=== PATIENT | male | born 1975 | race Caucasian/White ===

== ENCOUNTER 2024-03-15 15:45 | Outpatient (AMB) | payer OTHER, SELFPAY ==
--- NOTE | 2024-03-15 15:52 | MHC.PC.OV ---
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 Will order labs. Due for PSA, will order. Denies dribbling with urination, does have a weak stream (intermittent), and denies nocturia. Due for colon screen, will refer to GI. 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 1. Little interest or pleasure in doing things: not at all 2. Feeling down, depressed, or hopeless: not at all 3. Trouble falling or staying asleep, or sleeping too much: nearly every day 4. Feeling tired or having little energy: nearly every day 5. Poor appetite or overeating: nearly every day 6. Feeling bad about yourself - or that you are a failure or have let yourself or your family down: not at all 7. Trouble concentrating on things, such as reading the newspaper or watching television: not at all 8. Moving or speaking so slowly that other people could have noticed. Or the opposite - being so fidgety or restless that you have been moving around a lot more than usual: not at all 9. Thoughts that you would be better off or of hurting yourself in some way: not at all Total score: 9 Depression Screening Interpretation: Negative Depression Screening Done: Yes 03203 - PHQ-9 Billing: Yes Source: Developed by Drs. Ronak Hu, Angeles Loera, Jarrod Rogers and colleagues, with an educational ben from [employer]. Thrive Questionnaire Date Thrive assessed: 03/15/24 I am a: Patient What is your living situation today?: I have a steady place to live Within the past 12 months, did the food you bought not last and you didn't have the money to get more?: Never true Within the past 12 months, did you worry whether your food would run out before you got money to buy more?: Never true Do you have trouble paying for medicines?: No Do you have trouble getting transportation to medical appointments?: No Do you have trouble paying your heating and electricity bill?: No Do you have trouble taking care of your child, family member or friend?: No Do you have trouble with day-to-day activities such as bathing, preparing meals, shopping, managing finances, etc.?: No Are you currently unemployed and looking for a job?: No Are you interested in more education?: No Please select the resources that you would like help with: None Currently or been in a relationship where the following occur: No concerns reported THRIVE Score: 0 AUDIT C Alcohol Use Questionnaire (AUDIT-C) 1. How often do you have a drink containing alcohol?: 2-4 times a month 2. How many drinks containing alcohol do you have on a typical day when you are drinking?: 1 or 2 3. How often do you have six or more drinks on one occasion?: Never Total Score: 2 Score Reviewed/Action Taken: Yes JANET-7 AMB Questionnaire JANET-7 Date JANET - 7 assessed: 03/15/24 Feeling nervous, anxious, or on edge: 0 = Not at all Not being able to stop or control worryin = Not at all Worrying too much about different things: 0 = Not at all Trouble relaxin = Not at all Being so restless that it is hard to sit still: 0 = Not at all Becoming easily annoyed or irritable: 0 = Not at all Feeling afraid as if something awful might happen: 0 = Not at all Total JANET-7 score (0-4 normal; 5-9 mild; 10-14 moderate; 15-21 severe): 0 Source: Developed by Drs. Ronak Hu, Angeles Loera, Jarrod Rogers and colleagues, with an educational ben from [employer]. JANET-7 Assessment Billing JANET-7 Assessment Tool: JANET-7 Assessment 88100 Review of Systems Const Denies chills and Denies fever(s) Eyes Denies blurry vision ENT Denies vertigo, Denies dizziness and Denies sore throat Card Denies chest pain at rest, Denies chest pain with activity, Denies diaphoresis, Denies dyspnea and Denies dyspnea on exertion Resp Denies cough, Denies dyspnea, Denies dyspnea on exertion and Denies wheezing GI Denies abdominal pain, Denies melena, Denies hematochezia, Denies constipation, Denies diarrhea and Denies loose stools Denies hematuria Musc Denies numbness and Denies tingling Skin/Breast Denies lesions Neuro Denies vertigo, Denies dizziness, Denies numbness and Denies tingling Psych Denies anxiety, Denies depression, Denies homicidal ideation, Denies suicidal ideation and Denies other (substance abuse) Aller/Immun Denies wheezing Physical exam (Primary Care) Vital Signs: Last Vital Signs Pulse 60 03/15/24 15:55 BP 120/80 03/15/24 15:55 Pulse Ox 96 03/15/24 15:55 BMI result Body Mass Index 32.8 Tobacco/Smoking Status: Tobacco use Status Tobacco use date assessed 03/15/24 03/15/24 15:53 Patient Tobacco Use Status Never used Tobacco 03/15/24 15:58 e-Cigarette/Vaping Use Never Used 03/15/24 15:58 PHQ-9: PHQ-9 Score PHQ-9: Total score 9 03/15/24 16:08 Depression Screening Interpretation: Negative Thrive Assessment: Date of Thrive Assessment Date Thrive assessed 03/15/24 03/15/24 15:53 Currently or been in a relationship where the following occur: No concerns reported Const General: cooperative Nutritional Appearance: well nourished Orientation/consciousness: patient oriented x3 HENMT Head: Yes normal to inspection, Yes normocephalic and Yes atraumatic Ears: TM's normal bilaterally Eyes General: appearance normal, both eyes and all related structures Alignment and Position: alignment normal and position normal Neck Neck: Yes normal visual inspection, Yes no lymphadenopathy and Yes supple Resp Effort & Inspection: normal respiratory effort Auscultation: clear to auscultation bilaterally Cardio Rate: regular rate Rhythm: regular rhythm Heart sounds: S1 normal heart sound present, S2 normal heart sound present and no murmurs GI Palpation (GI): Soft to palpation and nontender Auscultation: normal bowel sounds Other: refused EUGENIA Male General Exam: Yes normal external exam Penis: normal penis Scrotum: scrotum normal, testes descended bilaterally and no inguinal hernias Testes: no testicular mass Skin Rashes: no rashes Neuro General: patient oriented x3, moves all extremities, no focal motor deficits and deep tendon reflexes 2+ bilaterally Romberg Test: Negative Psych Appearance: grossly normal Mental Status: mental status grossly normal Speech and movement: Normal speech and movement present Affect: normal affect Attitude: cooperative Thought process: Normal thought process present Thought content: Normal thought content present Insight: Good insight present (Psych) Judgement: Good judgement present (Psych) Assessment and Plan Assessment & Plan (1) Physical exam: Code(s): Z00.00 - Encounter for general adult medical examination without abnormal findings Plan: Labs ordered (2) Screening for prostate cancer: Code(s): Z12.5 - Encounter for screening for malignant neoplasm of prostate Plan: PSA ordered (3) Screening for colon cancer: Code(s): Z12.11 - Encounter for screening for malignant neoplasm of colon Plan: Referred to GI Plan The patient agreed to the use of a medical economics consultant for this encounter. Scribed for JENNIFER Kaplan by negro Lane scribe, on 03/15/2024 at 16:15 EST. Orders: Orders TSH reflex Free T4 Today Z00.00 - Encounter for general adult medical examination without abnormal findings UA CC w/rflx Micro + Cult Today Z00.00 - Encounter for general adult medical examination without abnormal findings Prostate Specific Antigen Scr Today Z12.5 - Encounter for screening for malignant neoplasm of prostate Complete Blood Count Auto Diff Today Z00.00 - Encounter for general adult medical examination without abnormal findings Comprehensive [place]. Panel Fast Today Z00.00 - Encounter for general adult medical examination without abnormal findings Lipid Panel Today Z00.00 - Encounter for general adult medical examination without abnormal findings Referrals Gastroenterology Referral Z12.11 - Encounter for screening for malignant neoplasm of colon Coding Level of Care Code New Pt Prev Care 40-64y(25012) Diagnoses Physical exam Z00.00 Screening for prostate cancer Z12.5 Screening for colon cancer Z12.11 Additional Codes JANET-7 Assessment Billing - JANET-7 Assessment Tool: JANET-7 Assessment [id number] ([id number])
[2024-03-15 15:55] VITALS: BP 120/80; PULSE 60; O2SAT 96; BMI 32.8
== END 2024-03-15 16:50 | disposition home or self-care (01) ==
PROVIDERS: PCP Nurse Practitioner Family; Visit Provider Nurse Practitioner Family
DX: Z00.00 Encounter for general adult medical examination without abnormal findings (principal); Z12.5 Encounter for screening for malignant neoplasm of prostate; Z12.11 Encounter for screening for malignant neoplasm of colon
CPT/HCPCS: 99386

== ENCOUNTER 2024-09-22 06:36 | Outpatient (REF) | payer OTHER, SELFPAY ==
[2024-09-22 10:14] LABS: MANUAL DIFF FLAG NO
[2024-09-22 10:24] LABS: Basophils Percent Auto 0.3 % (0-2); Eosinophils Absolute Auto 0.3 X10*3/uL (0.0-0.4); Eosinophils Percent Auto 4.7 % (0-4); Hematocrit 43.6 % (42.0-52.0); Hemoglobin 14.8 g/dl (14.0-18.0); Imm Gran Abs Auto 0.01 X10*3/uL (0.00-0.03); Imm Gran Pct Auto 0.2 % (0.0-0.4); Lymphocytes Absolute Auto 2.3 X10*3/uL (1.2-4.9); Lymphocytes Percent Auto 36.7 % (20-40); Mean Corpuscular HGB Conc 33.9 g/dl (31.0-36.0); Mean Corpuscular Hemoglobin 30.7 pg (27.0-33.0); Mean Corpuscular Volume 90.5 fL (80.0-98.0); Mean Platelet Volume 10.5 fL (9.4-12.4); Monocytes Absolute Auto 0.5 X10*3/uL (0.1-1.2); Monocytes Percent Auto 8.1 % (2-11); Neutrophils Absolute Auto 3.2 x10*3/uL (2.0-8.3); Platelet Count 253 X10*3/uL (160-400); Red Blood Count 4.82 X10*6/uL (4.60-5.80); Red Cell Distribution Width 11.9 % (11.0-16.0); White Blood Count 6.3 X10*3/uL (4.8-10.8)
[2024-09-22 10:44] LABS: Alanine Aminotransferase 41 U/L (0-40); Albumin Level 4.1 g/dL (3.5-5.0); Alkaline Phosphatase 121 U/L (39-117); Anion Gap 10 (12-20); Aspartate Amino Transferase 30 U/L (5-37); Bilirubin Total 0.4 mg/dL (0.0-1.0); Blood Urea Nitrogen 16 mg/dL (9-16); Calcium 9.1 mg/dL (8.4-10.2); Carbon Dioxide 27 mmol/L (22-29); Chloride 107 mmol/L (96-108); Cholesterol 181 mg/dL (<200); Estimated Glomerular Filt Rate > 60; Glucose Fasting 101 mg/dL (60-99); HDL Cholesterol 40 mg/dL (>40); LDL Cholesterol Calculated 126 mg/dL (<100); Sodium 140 mmol/L (135-145); Total Protein 7.5 g/dL (6.5-8.0); Triglycerides 79 mg/dL (<150)
[2024-09-22 10:49] LABS: Prostate Specific Antigen Scr 0.65 ng/mL (<0.05-4.0)
[2024-09-22 11:01] LABS: TSH reflex Free T4 1.65 uIU/mL (0.32-4.0)
[2024-09-22 11:03] LABS: Appearance Urine Turbid; Color Urine Dark Yellow; Glucose Urine UA Negative (Negative); Leukocyte Esterase Urine Negative (Negative); Nitrite Urine Negative (Negative); PH 5.5 (5.0-9.0); Specific Gravity - Urine >= 1.030 (1.005-1.025); Urine Blood Negative (Negative); Urine Ketones Trace mg/dL (Negative); Urine Protein Negative (Neg-Trace)
== END 2024-09-22 06:37 | disposition home or self-care (01) ==
LOC: HO.HMGCLDS 06:36
PROVIDERS: PCP Nurse Practitioner Family; Visit Provider Nurse Practitioner Family
DX: Z00.00 Encounter for general adult medical examination without abnormal findings (principal); Z12.5 Encounter for screening for malignant neoplasm of prostate; Z13.6 Encounter for screening for cardiovascular disorders
CPT/HCPCS: 36415; 80053; 80061; 81003; 84153; 84443; 85025

== ENCOUNTER → 2024-10-18 15:20 | Outpatient (BNVA) | payer OTHER, SELFPAY | PROVIDERS: PCP Nurse Practitioner Family; Visit Provider Surgery ==

== ENCOUNTER → 2024-10-18 15:20 | Outpatient (AMB) | payer OTHER, SELFPAY ==
--- NOTE | 2024-10-18 15:23 | A.OFFVIS_ITS ---
Vital Signs 10/18/24 15:34 Height 5 ft 11.75 in Weight 239 lb BMI 32.6 BP 133/88 Blood Pressure Location Rt brachial Position Sitting Pulse 77 Intake Visit Reasons: colonoscopy screening Intake Note: Patient scheduled for Colonoscopy screening. Reports stool sample test about 4yrs ago. Patient c/o: no concerns. Reports long periods of sitting while at work. Takes about 45 minutes to have complete bowel movement. Patient adopted unknown family hx. 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 He denies any significant GI complaints. He has never had any colonoscopy in the past. He does state that about 10 years ago, he had noticed some small amounts of blood on wiping. He has not seen this anymore. 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 Cognitive needs: No Hearing needs: No Vision needs: No Review of Systems Const Denies chills and Denies fever(s) Card Denies chest pain, Denies dyspnea and Denies dyspnea on exertion Resp Denies cough, Denies dyspnea and Denies dyspnea on exertion GI Denies hematochezia and Denies change in bowel habits Denies hematuria and Denies difficulty urinating Musc Denies back pain and Denies limited range of motion Neuro Denies focal weakness and Denies convulsions Psych Denies depression and Denies mood swings Physical Exam Vital Signs: Last Vital Signs Pulse 77 10/18/24 15:34 BP 133/88 10/18/24 15:34 BMI result Body Mass Index 32.6 Const General: comfortable and no acute distress Orientation/consciousness: patient oriented x3 Neck Neck: Yes no lymphadenopathy Resp Auscultation: clear to auscultation bilaterally Cardio Rhythm: regular rhythm GI Palpation (GI): Soft to palpation, nontender and no guarding Neuro General: patient oriented x3 Assessment & Plan Assessment & Plan (1) Screening for colon cancer: Code(s): Z12.11 - Encounter for screening for malignant neoplasm of colon Category: Medical Plan: I explained to him the technique of colonoscopy for screening. I reviewed the risks including but not limited to bleeding and perforation, as well as the benefits and alternatives. He says he understands and wants to proceed Coding Level of Care Code New Pt Level 3 (53988) Diagnoses Screening for colon cancer Z12.11
[2024-10-18 15:34] VITALS: BP 133/88; PULSE 77; BMI 32.6
== END ==
LOC: HO.HGS 15:21
PROVIDERS: PCP Nurse Practitioner Family; Visit Provider Surgery
DX: Z12.11 Encounter for screening for malignant neoplasm of colon (principal)
CPT/HCPCS: 99203

== ENCOUNTER 2024-10-26 14:56 | Outpatient (REF) | payer OTHER, SELFPAY ==
--- NOTE | ~2024-10-26 | US_ITS ---
CLINICAL HISTORY: R74.8 - Abnormal levels of other serum enzymes --- Additional Notes or Special Inst ructions: Elevated liver enzymes US abdomen complete with color Doppler Comparison: None Findings: The visualized pancreas, aorta, and inferior vena cava are unremarkable. Liver normal size and echotexture. Right lobe 16.6 cm length. No focal hepatic masses. Common duct 3.1 mm diameter. Physiologic distention of the gallbladder. Layering gallstones.5 mm gallbladder polyp. No gallbladder wall thickening. No pericholecystic fluid. No sonographic Toussaint sign. Main portal vein antegrade. Right kidney normal size, 10.2 cm in length. Normal cortical width and echotexture. No solid or cystic renal masses. No nephrolithiasis or hydronephrosis. Left kidney normal, 11.4 cm in length. Normal cortical width and echotexture. No solid or cystic renal masses. No nephrolithiasis or hydronephrosis. Spleen measures 12.9 cm. No splenic masses. No ascites. No lymphadenopathy. Impression: 1. Cholelithiasis. 5 mm gallbladder polyp. 2. Mild splenomegaly. This document has been electronically signed by: Loc Gaffney MD on 10/27/2024 12:53:56
== END 2024-10-26 14:57 | disposition home or self-care (01) ==
LOC: HO.HMGCX 14:56
PROVIDERS: PCP Nurse Practitioner Family; Visit Provider Nurse Practitioner Family
DX: R74.8 Abnormal levels of other serum enzymes (principal)
CPT/HCPCS: 76700

== ENCOUNTER → 2024-10-26 14:58 | Outpatient (BNV) | payer OTHER, SELFPAY | PROVIDERS: PCP Nurse Practitioner Family; Visit Provider Radiology Diagnostic Radiology | DX: R74.8 Abnormal levels of other serum enzymes (principal) | CPT/HCPCS: 76700 ==

== ENCOUNTER 2024-12-01 07:14 | Day surgery (SDC) | payer OTHER, SELFPAY ==
[2024-11-29 10:56] VITALS: BMI 32.6
[2024-12-01 07:21] VITALS: BMI 32.4
[2024-12-01 07:34] VITALS: BP 120/75; PULSE 79; RESP 16; TEMP 36.3; O2SAT 94
[2024-12-01] MEDS: Lactated Ringers 1,000 ML 100 ML IVCONT (07:42)
--- NOTE | 2024-12-01 08:15 | P.CONAN_ITS ---
Documented by User: Leelee Mckeon NP 11/30/24 09:38 HPI - Anesthesia Eval Consult details Narrative: 49yo M for Colonoscopy, possible polypectomy [facility] Active Problems Active Problems: All Active Problems Gallbladder polyp (Acute) Splenomegaly (Acute) Elevated alkaline phosphatase level (Acute) Elevated liver enzymes (Acute) Screening for colon cancer (Acute) Screening for prostate cancer (Acute) Physical exam (Acute) Surgical History Surgical History Hx of LASIK Social History Social History Housing: House Alcohol intake: current Alcohol intake frequency: holidays/special occasions only Alcohol type: beer and hard liquor Patient Tobacco Use Status: Never used Tobacco e-Cigarette/Vaping Use: Never Used Use of substances other than those prescribed or required for medical reasons: Yes Advance Directives: No Advance Directives Information Provided: Yes Poor oral hygiene: No service: Yes ([employer]- 4 yrs..[employer] 4 yrs ) Current occupational status: employed 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 Cognitive needs: No Hearing needs: No Vision needs: No Meds Allergies Allergy/AdvReac Type Severity Reaction Status Date / Time No Known Allergies Allergy Verified 10/18/24 15:29 Exam Height,Weight and Vital Signs: Height 5 ft 11.75 in Weight 108.409 kg Pertinent Lab Results Pertinent Lab Results: Laboratory Tests 09/22/24 07:04 WBC 6.3 Hgb 14.8 Hct 43.6 Plt Count 253 Sodium 140 Potassium 4.0 Chloride 107 Carbon Dioxide 27 BUN 16 Creatinine 0.93 Assessment and Plan Assessment Anesthesia Assessment: Chart Reviewed Documented by User: Norma Jason DO 12/01/24 08:16 [facility] Family History Family history of problems with anesthesia: No Surgical History Surgical History Hx of LASIK History of Problems with Anesthesia: No Social History Social History Housing: House Alcohol intake: current Alcohol intake frequency: holidays/special occasions only Alcohol type: beer and hard liquor Patient Tobacco Use Status: Never used Tobacco e-Cigarette/Vaping Use: Never Used Use of substances other than those prescribed or required for medical reasons: Yes Advance Directives: No Advance Directives Information Provided: Yes Poor oral hygiene: No service: Yes ([employer]- 4 yrs..[employer] 4 yrs ) Current occupational status: employed 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 Cognitive needs: No Hearing needs: No Vision needs: No Meds Allergies Allergy/AdvReac Type Severity Reaction Status Date / Time No Known Allergies Allergy Verified 10/18/24 15:29 Exam Exam Date and Time: 12/01/24 0815 Height,Weight and Vital Signs: Height 5 ft 11.75 in Weight 108.409 kg Vital Signs Temperature 97.3 F 12/01/24 07:34 Pulse Rate 79 12/01/24 07:34 Respiratory Rate 16 12/01/24 07:34 Blood Pressure 120/75 12/01/24 07:34 Pulse Oximetry 94 12/01/24 07:34 Oxygen Delivery Method Room Air 12/01/24 07:34 Temperature 97.3 F 12/01/24 07:34 Pulse Rate 79 12/01/24 07:34 Respiratory Rate 16 12/01/24 07:34 Blood Pressure 120/75 12/01/24 07:34 Pulse Oximetry 94 12/01/24 07:34 Oxygen Delivery Method Room Air 12/01/24 07:34 Airway Mallampati Class: II TM Dist: >3cm Neck ROM: Full Loose/Missing/Broken Teeth: No (patient denies any loose or broken teeth) Heart: S1S2 Lungs: CTAB Assessment and Plan Assessment Anesthesia Assessment: Anesthesia Plan Discussed and Chart Reviewed Final Anesthetic Review Family History of Problems with Anesthesia: No History of Problems with Anesthesia: No NPO: Yes ASA Class: II Final Preanesthetic Review: No Changes in Pt Med Stat, Meds/Allgs Chart Reviewed, Consent Obtained/Reviewed and Anes Risks/Benef Reviewed Patient Risk: Low Procedure Risk: Low Anesthetic Plan Anesthetic Plan: MAC: and Agree w/ Assess. and Plan Disposition: Standard PACU
--- NOTE | 2024-12-01 08:25 | MHC.SHP ---
Pre-Procedural Eval Section A - 24 Hr Update-Section A only Date of Service: 12/01/24 Section B - Complete if H&P > 30 days Chief Complaint: Encounter for screening for malignant neoplasm of Details of Present Illness: For screening colonoscopy, no GI complaints, no family history Relevant Social History: None Present Medications: see Short Stay Collaborative assessment Medical History: No relevant PMH Allergies: Allergies Allergy/AdvReac Type Severity Reaction Status Date / Time No Known Allergies Allergy Verified 10/18/24 15:29 Review of Systems Sugical H&P ROS: Negative: Constitution, Cardiovascular and Respiratory Exam Surgical H&P Exam: Normal: Heart, Normal: Lungs and Normal: Abdomen Plan Diagnosis/Plan: Unchanged I have reviewed the history and physical and performed a pertinent physical examination on my patient. No changes have occurred unless specified. Time Spent With Patient Time: Total time managing care of this patient today ____ minutes.
--- NOTE | 2024-12-01 09:00 | W.PM.OPN ---
Operative Note Operative Note Date of Service: 12/01/24 Narrative: Preop diagnosis: Colon cancer screening Postop diagnosis: 1. Small polyp about 2 mm, hepatic flexure, removed with cold forceps 2. Polyp, about 8 mm, level 18 cm removed with cold snare Procedure: Colonoscopy with polypectomy using cold forceps x1 and cold snare x1 Surgeon: Geoffrey Mike MD The patient is a 49-year-old male here for colon cancer screening. He understood the technique of the planned procedure as well as the risks, benefits, and alternatives. The patient was brought to the operating room and placed in left lateral decubitus position under monitored anesthesia care. A surgical time-out was done. A full digital rectal exam was done and this did not reveal any significant anal lesions. The tip of the Olympus colonoscope was gently introduced through the anal orifice advanced with insufflation all the way to the cecum. The cecum was intubated. The cecum was identified by visualization of the ileocecal valve as well as the appendiceal orifice. The cecal mucosa was unremarkable. The scope was gradually withdrawn with careful examination of the entire colonic mucosa being done with scope withdrawal. The patient had adequate bowel prep so it was unlikely that any lesion may have been missed. There was note of a small polyp, about 2 mm in the hepatic flexure the right colon side, removed with multiple bites of cold forceps. There was note of a larger polyp, about 8 mm at level 18 cm, removed with cold snare. There was note of good hemostasis. The rectum was reached and there were no lesions seen. The anal canal was unremarkable. The scope was then withdrawn completely with desufflation The patient tolerated procedure well. There were no immediate complications. Depending on his path report, next colonoscopy may be in the next 10 years.
[2024-12-01 09:04] VITALS: BP 98/61; PULSE 69; RESP 16; TEMP 36.4; O2SAT 98
[2024-12-01 09:19] VITALS: BP 124/84; PULSE 85; RESP 16; TEMP 36.4; O2SAT 97
== END 2024-12-01 09:51 | disposition home or self-care (01) ==
PROVIDERS: PCP Nurse Practitioner Family; Visit Provider Surgery
PROC: 0DJD8ZZ Inspection of Lower Intestinal Tract, Via Natural or Artificial Opening Endoscopic (ICD-10-PCS; CPT 45378; principal; 2024-12-01 08:30)
DX: Z12.11 Encounter for screening for malignant neoplasm of colon (principal); D12.3 Benign neoplasm of transverse colon; K63.5 Polyp of colon
CPT/HCPCS: 45385; 45380; 88305; J2704

== ENCOUNTER → 2024-12-01 07:14 | Outpatient (BNV) | payer OTHER, SELFPAY | PROVIDERS: PCP Nurse Practitioner Family; Visit Provider Surgery | DX: Z12.11 Encounter for screening for malignant neoplasm of colon (principal); K63.5 Polyp of colon | CPT/HCPCS: 45380; 45385 ==

== ENCOUNTER 2024-12-14 14:45 | Outpatient (AMB) | payer OTHER, SELFPAY ==
--- NOTE | 2024-12-14 14:50 | MHC.OFFVIS ---
Vital Signs 12/14/24 14:55 Weight 241 lb BP 138/70 Blood Pressure Location Rt brachial Position Sitting Pulse 88 Intake Visit Reasons: s/p colonoscopy Intake Note: Patient here s/p colonoscopy on 12-01-2024. Patient c/o: experienced 1 episode of bleeding after procedure. 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 He tolerated procedure well. He is here to discuss the findings. He denies any problems post procedure. 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 There were 2 polyps removed. There was note of a serrated adenomatous polyp at the hepatic flexure. There was note of a hyperplastic polyp as well In view of the presence of the serrated adenomatous polyp, I am recommending a follow-up colonoscopy in 5 years. He understands the plan. Coding Level of Care Code Est Pt Level 2 (76855) Diagnoses Serrated polyp of colon K63.5
[2024-12-14 14:55] VITALS: BP 138/70; PULSE 88
== END 2024-12-14 15:13 | disposition home or self-care (01) ==
LOC: HO.HGS 14:46
PROVIDERS: PCP Nurse Practitioner Family; Visit Provider Surgery
DX: K63.5 Polyp of colon (principal)
CPT/HCPCS: 99212

== ENCOUNTER 2025-04-30 08:26 | Outpatient (REF) | payer OTHER, SELFPAY ==
--- NOTE | ~2025-04-30 | US_ITS ---
CLINICAL HISTORY: R16.1 - Splenomegaly, gb polyp US abdomen complete Comparison: US - US ABDOMEN COMPLETE - 10/26/24 15:02 EDT Findings: The majority of the pancreas is obscured by gas. The aorta and inferior vena cava are normal caliber. The liver is normal in size and echotexture. There is no intrahepatic bile duct dilatation. The common duct is 4 mm in diameter. Cholelithiasis. There is a 8 mm gallbladder polyp/soft tissue lesion at the fundus. No gallbladder wall thickening. There is no sonographic Toussaint sign. The main portal vein is antegrade. The right kidney is 10.4 cm in length. The left kidney is 11.4 cm in length. The spleen is mildly enlarged and measures 12.6 cm. No ascites. IMPRESSION: 8 mm soft tissue lesion at the fundus of the gallbladder, likely a gallbladder polyp. However, it is not definitively seen on prior exam. Recommend a liver MRI with and without contrast for further evaluation. This document has been electronically signed by: Iza Mai MD on 04/30/2025 19:29:01
== END 2025-04-30 08:27 | disposition home or self-care (01) ==
LOC: HO.HMGCX 08:26
PROVIDERS: PCP Nurse Practitioner Family; Visit Provider Nurse Practitioner Family
DX: R16.1 Splenomegaly, not elsewhere classified (principal); K82.4 Cholesterolosis of gallbladder
CPT/HCPCS: 76700

== ENCOUNTER → 2025-04-30 08:28 | Outpatient (BNV) | payer OTHER, SELFPAY | PROVIDERS: PCP Nurse Practitioner Family; Visit Provider Student in an Organized Health Care Education/Training Program | DX: K82.4 Cholesterolosis of gallbladder (principal); R16.1 Splenomegaly, not elsewhere classified | CPT/HCPCS: 76700 ==

== ENCOUNTER 2025-06-01 09:05 | Outpatient (REF) | payer OTHER, SELFPAY ==
[2025-06-01 12:38] LABS: MANUAL DIFF FLAG NO
[2025-06-01 12:46] LABS: Appearance Urine Turbid; Glucose Urine UA Negative (Negative); PH 5.5 (5.0-9.0); Specific Gravity - Urine >= 1.030 (1.005-1.025)
[2025-06-01 12:47] LABS: Hematocrit 39.8 % (42.0-52.0); Hemoglobin 13.8 g/dl (14.0-18.0); Imm Gran Abs Auto 0.01 X10*3/uL (0.00-0.03); Imm Gran Pct Auto 0.2 % (0.0-0.4); Lymphocytes Absolute Auto 2.2 X10*3/uL (1.2-4.9); Mean Corpuscular HGB Conc 34.7 g/dl (31.0-36.0); Mean Corpuscular Hemoglobin 30.9 pg (27.0-33.0); Mean Corpuscular Volume 89.0 fL (80.0-98.0); NRBC Abs Auto 0.000 X10*3/uL (0.0-0.012); NRBC Pct Auto 0.0 /100WBC (0.0-0.2); Platelet Count 226 X10*3/uL (160-400); Red Blood Count 4.47 X10*6/uL (4.60-5.80); White Blood Count 5.4 X10*3/uL (4.8-10.8)
[2025-06-01 13:09] LABS: Alanine Aminotransferase 28 U/L (0-40); Albumin Level 4.3 g/dL (3.5-5.0); Alkaline Phosphatase 98 U/L (39-117); Anion Gap 11 (12-20); Aspartate Amino Transferase 29 U/L (5-37); Blood Urea Nitrogen 18 mg/dL (9-16); Calcium 9.0 mg/dL (8.4-10.2); Carbon Dioxide 26 mmol/L (22-29); Chloride 109 mmol/L (96-108); Cholesterol 155 mg/dL (<200); Estimated Glomerular Filt Rate > 60; HDL Cholesterol 36 mg/dL (>40); Potassium 3.9 mmol/L (3.3-5.1); Sodium 142 mmol/L (135-145); Total Protein 6.8 g/dL (6.5-8.0); Triglycerides 55 mg/dL (<150)
[2025-06-01 13:19] LABS: Gamma Glutamyl Transpeptidase 32 U/L (11-51)
[2025-06-05 15:03] LABS: Alk.Phos Iso. Macrohepatic 0 % (<=0); Alk.Phos Isoenzymes Bone 58 % (28-66); Alk.Phos Isoenzymes Intest 0 % (1-24); Alk.Phos Isoenzymes Liver 42 % (25-69); Alk.Phos Isoenzymes Placental 0 % (<=0); Alk.Phos Isoenzymes Total 93 U/L (35-144)
== END 2025-06-01 09:06 | disposition home or self-care (01) ==
LOC: HO.HMGCLDS 09:05
PROVIDERS: PCP Nurse Practitioner Family; Visit Provider Nurse Practitioner Family
DX: Z12.5 Encounter for screening for malignant neoplasm of prostate (principal); R74.8 Abnormal levels of other serum enzymes; Z13.29 Encounter for screening for other suspected endocrine disorder
CPT/HCPCS: 36415; 80053; 80061; 81003; 82977; 84080; 84153; 84443; 85025

== ENCOUNTER 2025-06-04 15:57 | Outpatient (AMB) | payer OTHER, SELFPAY ==
--- NOTE | 2025-06-04 15:58 | MHC.PC.OV ---
Vital Signs 06/04/25 15:59 Height 5 ft 11 in Weight 242 lb BMI 33.7 BP 130/70 Blood Pressure Location Rt brachial Position Sitting Pulse 88 Pulse Source Pulse Oximeter Pulse Oximetry (%) 98 Intake Visit Reasons: PE Allergies No Known Allergies Allergy (Verified 06/04/25 15:59) Medication List - Last Reconciled 06/04/25 by SOLO Wise No Known Home Meds Tobacco use date assessed: 06/04/25 Dental Screening Dental Screen Date: 03/15/24 HPI PE HPI Details History of Present Illness The patient is a 50 year old individual presenting for a physical exam. Recent lab work was performed prior to the visit. Lab results were generally stable but revealed a slightly elevated alkaline phosphatase. A prior ultrasound showed a possible gallbladder polyp or lesion. Other lab results include an LDL of 108 mg/dL, a fasting blood sugar of 105 mg/dL, and a PSA within normal limits. The patient's colonoscopy screening is up to date, and the patient is noted to be obese. The patient denies any chest pain or shortness of breath. Health Maintenance The patient presented for a physical exam. The patient's PSA is within normal limits and colonoscopy screening is up to date. Social History - The patient is obese. - The patient was encouraged to work on diet. Review of Systems - Cardiovascular: Denies chest pains. - Respiratory: Denies shortness of breath. Physical Exam General: Cooperative, healthy appearing, comfortable, no acute distress and well developed, obese Orientation: Patient oriented x3 Limitations: No limitations Head: Normal to inspection Ears: Hearing grossly normal bilaterally Nose: Normal external nose present Face and sinus: Normal facial exam Eyes: Appearance normal, both eyes and all related structures Neck: Normal visual inspection and Yes full ROM, possibly nodular thyroid Respiratory: Normal respiratory effort and able to speak in complete sentences. Clear to auscultation bilaterally Cardiovascular: Regular rate and rhythm. Normal S1 and S2 GI: Normal to inspection. Soft to palpation and nontender : Testicles without masses/lesions and no hernias appreciated Skin: No rashes or lesions noted Neuro: Patient oriented x3 Extremities: Normal to inspection Results - Labs: - Alkaline phosphatase: Slightly elevated. - Alkaline phosphatase isoenzymes: Pending. - PSA: Within normal limits. - LDL: 108 mg/dL. - Fasting blood sugar: 105 mg/dL. - Imaging: - Gallbladder ultrasound: Showed a possible gallbladder polyp or lesion. Plan 1. Elevated Alkaline Phosphatase And Gallbladder Polyp The patient has a slightly elevated alkaline phosphatase, and a prior ultrasound revealed a possible gallbladder polyp or lesion. An MRI has been ordered to further evaluate the gallbladder finding, which the patient will schedule for July. Additionally, an alkaline phosphatase isoenzyme panel was ordered, and the results are currently pending. 2. Hyperlipidemia And Prediabetes The patient's LDL is 108 mg/dL and fasting blood sugar is 105 mg/dL. The patient was encouraged to work on diet and exercise. 3. Thyroid Nodule A physical exam revealed a slightly enlarged and possibly nodular thyroid. A thyroid ultrasound will be ordered for further evaluation. 4. Obesity The patient is obese and was counseled on making dietary improvements. Discussion Notes I discussed the lab results with the patient, noting the slightly elevated alkaline phosphatase, LDL of 108, and fasting blood sugar of 105. I informed the patient that a previous ultrasound showed a possible gallbladder polyp or lesion, and that an MRI is necessary to confirm this finding. I explained that an alkaline phosphatase isoenzyme panel is pending. I also discussed the physical exam finding of a slightly enlarged and nodular thyroid and recommended a thyroid ultrasound for further evaluation. I encouraged the patient to work on diet modifications. Patient Instructions - Please schedule an MRI in July to get a better look at your gallbladder. - We have ordered an ultrasound to check on your thyroid. - Please continue to focus on improving your diet. - We are waiting for the results of a follow-up liver test. 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 1. Little interest or pleasure in doing things: not at all 2. Feeling down, depressed, or hopeless: not at all 3. Trouble falling or staying asleep, or sleeping too much: nearly every day 4. Feeling tired or having little energy: nearly every day 5. Poor appetite or overeating: nearly every day 6. Feeling bad about yourself - or that you are a failure or have let yourself or your family down: not at all 7. Trouble concentrating on things, such as reading the newspaper or watching television: not at all 8. Moving or speaking so slowly that other people could have noticed. Or the opposite - being so fidgety or restless that you have been moving around a lot more than usual: not at all 9. Thoughts that you would be better off or of hurting yourself in some way: not at all Total score: 9 Depression Screening Interpretation: Positive Depression Screening Follow-up: Existing condition and Declines treatment Depression Screening Done: Yes 37713 - PHQ-9 Billing: Yes Source: Developed by Drs. Ronak Hu, Angeles Loera, Jarrod Rogers and colleagues, with an educational ben from [employer] Thrive Questionnaire Date Thrive assessed: 06/04/25 I am a: Patient What is your living situation today?: I have a steady place to live Within the past 12 months, did the food you bought not last and you didn't have the money to get more?: Never true Within the past 12 months, did you worry whether your food would run out before you got money to buy more?: Never true Do you have trouble paying for medicines?: No Do you have trouble getting transportation to medical appointments?: No Do you have trouble paying your heating and electricity bill?: No Do you have trouble taking care of your child, family member or friend?: No Do you have trouble with day-to-day activities such as bathing, preparing meals, shopping, managing finances, etc.?: No Are you currently unemployed and looking for a job?: No Are you interested in more education?: No Please select the resources that you would like help with: None Currently or been in a relationship where the following occur: No concerns reported THRIVE Score: 0 AUDIT C Alcohol Use Questionnaire (AUDIT-C) 1. How often do you have a drink containing alcohol?: 2-4 times a month 2. How many drinks containing alcohol do you have on a typical day when you are drinking?: 1 or 2 3. How often do you have six or more drinks on one occasion?: Never Total Score: 2 Score Reviewed/Action Taken: Yes JANET-7 AMB Questionnaire JANET-7 Date JANET - 7 assessed: 06/04/25 Feeling nervous, anxious, or on edge: 0 = Not at all Not being able to stop or control worryin = Not at all Worrying too much about different things: 0 = Not at all Trouble relaxin = Not at all Being so restless that it is hard to sit still: 0 = Not at all Becoming easily annoyed or irritable: 0 = Not at all Feeling afraid as if something awful might happen: 0 = Not at all Total JANET-7 score (0-4 normal; 5-9 mild; 10-14 moderate; 15-21 severe): 0 Source: Developed by Drs. Ronak Hu, Angeles Loera, Jarrod Rogers and colleagues, with an educational ben from [employer] JANET-7 Assessment Billing JANET-7 Assessment Tool: JANET-7 Assessment 38511 Physical exam (Primary Care) Vital Signs: Last Vital Signs Pulse 88 06/04/25 15:59 BP 130/70 06/04/25 15:59 Pulse Ox 98 06/04/25 15:59 BMI result Body Mass Index 33.7 Tobacco/Smoking Status: Tobacco use Status Tobacco use date assessed 06/04/25 06/04/25 16:00 Patient Tobacco Use Status Never used Tobacco 06/04/25 16:00 e-Cigarette/Vaping Use Never Used 06/04/25 16:00 PHQ-9: PHQ-9 Score PHQ-9: Total score 9 06/04/25 16:09 Depression Screening Interpretation: Positive Depression Screening Follow-up: Existing condition and Declines treatment Thrive Assessment: Date of Thrive Assessment Date Thrive assessed 06/04/25 06/04/25 16:00 Currently or been in a relationship where the following occur: No concerns reported Coding Level of Care Code Est Pt Prev Care 40-64y(32416) Diagnoses Thyroid nodule E04.1 Physical exam Z00.00 Elevated alkaline phosphatase level R74.8 Additional Codes JANET-7 Assessment Billing - JANET-7 Assessment Tool: JANET-7 Assessment 43580 ([id number]) PHQ-9 - 23676 - PHQ-9 Billing: Yes ([id number]) Assessment & Plan Assessment & Plan (1) Thyroid nodule: Code(s): E04.1 - Nontoxic single thyroid nodule Category: Medical (2) Physical exam: Code(s): Z00.00 - Encounter for general adult medical examination without abnormal findings Category: Medical (3) Elevated alkaline phosphatase level: Code(s): R74.8 - Abnormal levels of other serum enzymes Category: Medical Plan . Orders: Orders US thyroid Today E04.1 - Nontoxic single thyroid nodule
[2025-06-04 15:59] VITALS: BP 130/70; PULSE 88; O2SAT 98; BMI 33.7
== END 2025-06-04 17:15 | disposition home or self-care (01) ==
LOC: HO.HMCC 15:57
PROVIDERS: PCP Nurse Practitioner Family; Visit Provider Nurse Practitioner Family
DX: Z00.00 Encounter for general adult medical examination without abnormal findings (principal); E04.1 Nontoxic single thyroid nodule; R74.8 Abnormal levels of other serum enzymes

== ENCOUNTER → 2025-06-04 15:57 | Outpatient (BNVA) | payer OTHER, SELFPAY | PROVIDERS: PCP Nurse Practitioner Family; Visit Provider Nurse Practitioner Family | DX: Z00.00 Encounter for general adult medical examination without abnormal findings (principal); K82.4 Cholesterolosis of gallbladder; E78.5 Hyperlipidemia, unspecified; R73.03 Prediabetes; E04.1 Nontoxic single thyroid nodule; E66.9 Obesity, unspecified; R74.8 Abnormal levels of other serum enzymes; Z68.33 Body mass index [BMI] 33.0-33.9, adult | CPT/HCPCS: 96127 ==

== ENCOUNTER 2025-06-13 11:49 | Outpatient (REF) | payer OTHER, SELFPAY ==
[2025-06-13 14:05] LABS: MANUAL DIFF FLAG NO
[2025-06-13 14:12] LABS: Hematocrit 40.9 % (42.0-52.0); Hemoglobin 14.1 g/dl (14.0-18.0); Imm Gran Abs Auto 0.01 X10*3/uL (0.00-0.03); Imm Gran Pct Auto 0.2 % (0.0-0.4); Lymphocytes Absolute Auto 1.6 X10*3/uL (1.2-4.9); Mean Corpuscular HGB Conc 34.5 g/dl (31.0-36.0); Mean Corpuscular Hemoglobin 30.9 pg (27.0-33.0); Mean Corpuscular Volume 89.7 fL (80.0-98.0); NRBC Abs Auto 0.000 X10*3/uL (0.0-0.012); NRBC Pct Auto 0.0 /100WBC (0.0-0.2); Platelet Count 255 X10*3/uL (160-400); Red Blood Count 4.56 X10*6/uL (4.60-5.80); Reticulocytes Absolute 0.056 X10*6/uL (0.026-0.095); White Blood Count 4.8 X10*3/uL (4.8-10.8)
[2025-06-13 14:47] LABS: Alanine Aminotransferase 28 U/L (0-40); Albumin Level 4.4 g/dL (3.5-5.0); Alkaline Phosphatase 104 U/L (39-117); Anion Gap 9 (12-20); Aspartate Amino Transferase 23 U/L (5-37); Blood Urea Nitrogen 16 mg/dL (9-16); Calcium 8.9 mg/dL (8.4-10.2); Carbon Dioxide 29 mmol/L (22-29); Chloride 107 mmol/L (96-108); Estimated Glomerular Filt Rate > 60; Iron 81 mcg/dL (45-160); Percent Iron Saturation 25 % (15-50); Potassium 3.4 mmol/L (3.3-5.1); Sodium 142 mmol/L (135-145); Total Iron Binding Capacity 329 mcg/dL (228-428); Total Protein 7.1 g/dL (6.5-8.0); Unsaturated Iron Binding 248 ug/dL
[2025-06-13 15:06] LABS: Ferritin 38 ng/mL (20-250)
[2025-06-13 15:28] LABS: Folate 11.3 ng/mL (> or = 4.0); Vitamin B12 569 pg/mL (200-900)
== END 2025-06-13 11:50 | disposition home or self-care (01) ==
LOC: HO.HMGCLDS 11:49
PROVIDERS: PCP Nurse Practitioner Family; Visit Provider Nurse Practitioner Family
DX: D64.9 Anemia, unspecified (principal)
CPT/HCPCS: 36415; 80053; 82607; 82728; 82746; 83540; 83615; 85025; 85045